=== PATIENT | female | born 1975 | race Caucasian/White ===

== ENCOUNTER 2019-03-23 05:13 | Inpatient (IN) | payer OTHER, MEDICAID ==
[2019-03-23] MEDS ORDERED: Celecoxib 200 MG Cap PO ONE (05:30)
[2019-03-23] MEDS ORDERED: Gabapentin 300 MG Cap PO ONE (05:30)
[2019-03-23] MEDS ORDERED: Acetaminophen 500 MG Tab PO ONE (05:30)
[2019-03-23] MEDS ORDERED: Scopolamine 1.5 MG Transdermal Patch TOP ONE (05:30)
[2019-03-23] MEDS ORDERED: Dextrose 5%-Lactated Ringers 1,000 ML IV SCH ×2 (06:00→11:30)
[2019-03-23] MEDS ORDERED: cefOXitin 2 GM Vial ONE (06:37)
[2019-03-23] MEDS ORDERED: cefOXitin 2 GM in Sodium Chloride 0.9% 50 ML IV ONE (06:45)
[2019-03-23] MEDS ORDERED: Succinylcholine 200 MG/10 ML MDV ONE (07:12)
[2019-03-23] MEDS ORDERED: Neostigmine Methylsulfate 1 MG/ML 5 ML Syringe ONE (07:12)
[2019-03-23] MEDS ORDERED: Lactated Ringers 1,000 ML ONE (07:12)
[2019-03-23] MEDS ORDERED: Glycopyrrolate 0.2 MG/ML 5 ML MDV ONE (07:12)
[2019-03-23] MEDS ORDERED: fentaNYL 250 MCG/5 ML SDV ONE ×2 (07:12→08:14)
[2019-03-23] MEDS ORDERED: Ondansetron 4 MG/2 ML SDV ONE (07:12)
[2019-03-23] MEDS ORDERED: Dexamethasone 4 MG/ML SDV ONE (07:12)
[2019-03-23] MEDS ORDERED: Propofol 200 MG/20 ML SDV ONE (07:12)
[2019-03-23] MEDS ORDERED: Rocuronium 50 MG/5 ML Vial ONE (07:12)
[2019-03-23] MEDS ORDERED: Ketamine 500 MG/5 ML MDV IV SCH (07:30)
[2019-03-23] MEDS ORDERED: Lidocaine 2% 100 MG/5 ML Syringe IVPUSH SCH (07:30)
[2019-03-23] MEDS ORDERED: Ketamine 50 MG in Sodium Chloride 0.9% 49.5 ML IV SCH (07:30)
[2019-03-23] MEDS: Lidocaine 0.4%/D5W 2 GM/500 ML BAG IV SCH (07:30)
[2019-03-23] MEDS ORDERED: fentaNYL 100 MCG/2 ML SDV ONE (08:02)
[2019-03-23] MEDS ORDERED: hydrOXYzine HCl 100 MG/2 ML SDV IM ONE (08:53)
[2019-03-23] MEDS ORDERED: Insulin Lispro 100 Unit/ML 3 ML KwikPen SUBCUT ONE (09:30)
[2019-03-23] MEDS ORDERED: HYDROmorphone 0.5 MG/0.5 ML Syringe IVPUSH PRN (11:24)
[2019-03-23] MEDS ORDERED: 50% Dextrose in Water 50 ML Syringe IVPUSH PRN (11:24)
[2019-03-23] MEDS ORDERED: Metoclopramide 10 MG/2 ML SDV IVPUSH PRN (11:24)
[2019-03-23] MEDS ORDERED: Glucagon,Human Recombinant 1 MG Vial IM PRN (11:24)
[2019-03-23] MEDS ORDERED: Ondansetron 4 MG/2 ML SDV IVPUSH PRN (11:24)
[2019-03-23] MEDS ORDERED: HYDROmorphone 1 MG/ML Syringe IV PRN (11:24)
[2019-03-23] MEDS ORDERED: Labetalol 20 MG/4 ML Syringe IVPUSH PRN (11:24)
[2019-03-23] MEDS ORDERED: diphenhydrAMINE 50 MG/ML SDV IVPUSH PRN (11:24)
[2019-03-23] MEDS ORDERED: hydrOXYzine HCl 100 MG/2 ML SDV IM PRN (11:24)
[2019-03-23] MEDS ORDERED: Albuterol/Ipratropium 3.0-0.5 MG/3 ML Neb Soln INH PRN (11:26)
[2019-03-23] MEDS: cefOXitin 2 GM in Sodium Chloride 0.9% 50 ML IV SCH ×2 (13:59→19:29)
[2019-03-23] MEDS: Gabapentin 250 MG/5 ML Solution ML 470 ML Bottle PO SCH ×2 (14:00→21:11)
[2019-03-23] MEDS: Losartan 50 MG Tab PO SCH (14:03)
[2019-03-23] MEDS: Acetaminophen Soln 650 MG/20.3 ML UD Cup PO SCH ×2 (14:03→19:29)
[2019-03-23] MEDS: Pantoprazole 40 MG Vial IVPUSH SCH (14:03)
[2019-03-23] MEDS ORDERED: VERIFY SCOP PATCH TOP SCH (15:00)
[2019-03-23] MEDS: Heparin Sodium 5,000 Units/ML Vial SUBCUT SCH (16:30)
[2019-03-23] MEDS: metFORMIN 500 MG Tab PO SCH (16:30)
[2019-03-23] MEDS: MVI, Adult with Vitamin K 10 ML, Thiamine 200 MG, Chromium/Copper/Mang/Selen/Zn 1 ML in... IV SCH ×4 (16:32)
[2019-03-23] MEDS: Insulin Lispro 100 Unit/ML 3 ML KwikPen SUBCUT PRN ×2 (16:59→22:26)
[2019-03-23] MEDS ORDERED: Insulin Glargine,Human Rec. Analog 100 Units/ML 3 ML Pen SUBCUT ONE (21:00)
[2019-03-23] MEDS: Montelukast 10 MG Tab PO SCH (21:11)
[2019-03-24] MEDS: Acetaminophen Soln 650 MG/20.3 ML UD Cup PO SCH ×4 (01:44→19:45)
[2019-03-24] MEDS: Lactated Ringers 1,000 ML IV SCH ×2 (01:45→08:01)
[2019-03-24] MEDS: cefOXitin 2 GM in Sodium Chloride 0.9% 50 ML IV SCH ×2 (01:45→08:07)
[2019-03-24] MEDS ORDERED: Iopamidol 612 MG/ML 50 ML SDV PO STA (03:05)
[2019-03-24] MEDS: Heparin Sodium 5,000 Units/ML Vial SUBCUT SCH ×2 (04:09→16:23)
--- NOTE | 2019-03-24 05:07 | CRLCR ---
Indication: Evaluate for Jamar-en-Y leakage Technique: Abdomen modified upper GI Comparison: None Findings: Oral contrast traversing through the gastric pouch in the jejunum down to the left mid abdomen. No evidence of oral contrast leakage. Impression: No evidence for oral contrast leakage. Dictated by Josias Goetz MD @ 03/24/2019 5:05:10 AM Dictated by: Josias Goetz MD @ 03/24/2019 05:05:17 (Electronically Signed)
[2019-03-24] MEDS ORDERED: Ondansetron 4 MG Tab.DIS PO PRN (07:59)
[2019-03-24] MEDS: Lidocaine 0.4%/D5W 2 GM/500 ML BAG IV SCH (08:00)
[2019-03-24] MEDS ORDERED: Lactated Ringers 1,000 ML IV SCH (08:00)
[2019-03-24] MEDS: Gabapentin 250 MG/5 ML Solution ML 470 ML Bottle PO SCH ×3 (08:05→21:19)
[2019-03-24] MEDS: Celecoxib 200 MG Cap PO SCH (08:17)
[2019-03-24] MEDS: metFORMIN 500 MG Tab PO SCH ×2 (08:21→16:23)
[2019-03-24] MEDS: Losartan 50 MG Tab PO SCH (08:26)
[2019-03-24] MEDS: SCOPOLAMINE PATCH CHECK TOP SCH (08:29)
[2019-03-24] MEDS: Insulin Lispro 100 Unit/ML 3 ML KwikPen SUBCUT PRN ×2 (09:57→22:29)
--- NOTE | 2019-03-24 10:57 | PN ---
DATE OF SERVICE: 03/24/2019 SUBJECTIVE: Josselyn is postoperative day 1 following a Jamar-en-Y gastric bypass surgery. She has been up ambulating. Vital signs have been stable. Pain has been controlled. Blood sugar was 248 and 196. She is on metformin 1000 mg b.i.d. and Tresiba units subcu last evening. REVIEW OF SYSTEMS: Remainder of review of systems negative for any pertinent positives and negatives. OBJECTIVE: GENERAL: Josselyn Menendez is a 44-year-old female. She is alert and orientated. VITAL SIGNS: TPR 98.3, 87, 16. Blood pressure 133/84. HEENT: Negative. NECK: Supple. HEART: Regular rate and rhythm. LUNGS: Clear. ABDOMEN: Dressings dry and intact. Abdominal binder is on and ROSALBA drain is intact draining a light red drainage of 65 mL over the past 24 hours. EXTREMITIES: Without peripheral edema. ASSESSMENT: Laparoscopic Jamar-en-Y gastric bypass surgery and liver biopsy for morbid obesity and hepatomegaly. PLAN: 1. Decrease IV to 100 mL/hour. 2. Step 2 gastric bypass diet without cereal. 3. Alogliptin [address] daily in [address] of Januvia 100 mg p.o. daily. 4. Change IV to lactated Ringer's 100 mL/hour. 5. Discontinue D5LR. 6. Check with insurance company to get Januvia prior authorized. 7. Dressing off may shower. 8. Zofran ODT 4 mg every 4 hours p.r.n. nausea. 9. Good pulmonary toilet. 10.Communication order for 3 med cups per hour or 1 every 20 minutes to record at bedside. We will evaluate p.r.n. or in a.m. Milla Anthony PA-C /[id number]
[2019-03-24] MEDS: Pantoprazole 40 MG Vial IVPUSH SCH (13:44)
[2019-03-24] MEDS: MVI, Adult with Vitamin K 10 ML, Thiamine 200 MG, Chromium/Copper/Mang/Selen/Zn 1 ML in... IV SCH ×4 (16:23)
[2019-03-24] MEDS: Montelukast 10 MG Tab PO SCH (21:19)
[2019-03-25] MEDS: Acetaminophen Soln 650 MG/20.3 ML UD Cup PO SCH ×2 (03:11→07:30)
[2019-03-25] MEDS: Heparin Sodium 5,000 Units/ML Vial SUBCUT SCH (03:11)
[2019-03-25] MEDS ORDERED: Pantoprazole 40 MG Tab.CR PO SCH (07:30)
[2019-03-25] MEDS: Celecoxib 200 MG Cap PO SCH (07:30)
[2019-03-25] MEDS: metFORMIN 500 MG Tab PO SCH (07:30)
[2019-03-25] MEDS: Losartan 50 MG Tab PO SCH (08:33)
[2019-03-25] MEDS: Gabapentin 250 MG/5 ML Solution ML 470 ML Bottle PO SCH (08:34)
[2019-03-25] MEDS: SCOPOLAMINE PATCH CHECK TOP SCH (08:34)
[2019-03-25] MEDS ORDERED: Cyanocobalamin (Vitamin B12) 1,000 MCG/ML SDV IM ONE (09:00)
--- NOTE | 2019-03-25 14:09 | OR ---
DATE OF PROCEDURE: 03/23/2019 SURGEON: Abelardo Mata MD PREOPERATIVE DIAGNOSIS: Morbid obesity. POSTOPERATIVE DIAGNOSES: 1. Morbid obesity. 2. Marked hepatomegaly. OPERATIVE PROCEDURES: 1. Laparoscopic Jamar-en-Y gastric bypass with long limb gastroenterostomy (25951). 2. Henry-Cut needle liver biopsy (87906). ANESTHESIA: General. INDICATION FOR PROCEDURE: This is a 44-year-old female presenting with longstanding morbid obesity and increasingly significant comorbidities. After preoperative evaluation and discussion, she wished to proceed with a gastric bypass procedure. Potential risks of procedure including bleeding, infection, leaks from various GI tract closures, problems with bowel obstruction over time, as well as possibility of cardiopulmonary, septic, or hemorrhagic complications leading to were all discussed, and the patient wishes to proceed. DETAILS OF PROCEDURE: The patient was taken to the operating room and placed in a supine position. After general endotracheal anesthesia was induced, she was converted to a lithotomy position and the abdomen prepped and draped. At 15 cm inferior and 5 cm left of the xiphoid process, a transverse incision was made and peritoneal cavity entered under direct vision with an Optiview trocar, inflated to 15 mmHg pressure with CO2. Laparoscope was then reinserted. No underlying trocar insertion site injuries were seen. Following this, 5 additional trocars were placed across the upper and mid abdomen. General exploration was undertaken. The patient was noted to have marked hepatomegaly with the liver being grossly fatty infiltrated. Henry-Cut needle biopsy was obtained from left lobe of the liver. Minimal bleeding from the biopsy sites was controlled with electrocautery. Bilateral transversus abdominis plane blocks were then placed at this time as well. The omentum was then divided in the midline up to the level of the transverse colon. This allowed identification of small bowel at the ligament of Treitz. Small bowel was then traced out 200 cm distal to that point, where it was divided transversely with a CORINE stapler. The small bowel was then traced out additional 200 cm, where the [id number] enteroenterostomy was accomplished with internal firing of the Endo-CORINE 60 mm stapler. Common opening was then closed transversely with the same stapler and angles anastomosed and mesenteric defect approximated with some 0 Ethibond stitch, along with 4 mL of fibrin sealant. The divided end of the Jamar limb was then from the mesentery for a few centimeters, which allowed an antecolic positioning of the Jamar limb up to the level of the gastroesophageal junction without tension. The liver was then retracted anteriorly, and the patient was noted to have no significant hiatal hernia. The gastrointestinal balloon catheter was then inflated 15 mL and pulled snuggly up against the EG junction. The gastric wall over the apex of balloon was then marked with electrocautery and balloon catheter deflated and withdrawn. Lesser omental tissue adjacent to the gastric cardia was then incised, allowing the stomach to be dissected posteriorly in that area. The pouch formation was initiated with a transverse firing of the CORINE stapler at the level of the cauterized fernando on the gastric cardia and then completed with some additional CORINE staple firings up to and through the angle of His. Upon completion of the pouch, both staple lines were noted to be intact. The anvil of a 25-mm EEA stapler was then attached to Springer sump type tube. The latter was brought down through the mouth, taken out through a small opening in the gastric pouch, allowing the anvil likewise to be pulled down to within the gastric pouch. Divided end of the Jamar limb was then opened and main body of the EEA stapler was passed several centimeters into the lumen of small bowel, brought up the anvil and united with it, thus creating the gastrojejunostomy. Upon removal of the stapler, double donuts of mucosa were noted within it. Small bowel was closed off with a CORINE stapler. A leak test was accomplished with injection of 120 mL of air in the gastric pouch while it was submerged with antibiotic-containing saline solution. No leaks were identified. A single Olegario- Krishnamurthy drain was taken out through the left lateral trocar site and placed adjacent to the gastrojejunostomy and from there up into the splenic fossa. At that point, the trocars were removed and the peritoneal cavity deflated. The incisions were closed with some 4-0 Vicryl skin stitch, which was also used to affix the drain. The patient was taken to the recovery room in satisfactory condition. Abelardo Mata MD /[id number]
--- NOTE | 2019-03-26 07:55 | DISCH ---
ADMISSION DIAGNOSES: Morbid obesity, type 2 diabetes mellitus, fibromyalgia, anxiety disorder, chronic migraine headaches, and depression. DISCHARGE DIAGNOSES: Laparoscopic Jamar-en-Y gastric bypass surgery, liver biopsy for morbid obesity and hepatomegaly. Date of surgery, 03/23/2019. Surgeon, Abelardo Mata MD. HISTORY: Josselyn Menendez is a pleasant 44-year-old female with longstanding history of morbid obesity and increasing comorbidities. After preoperative evaluation and discussion of possible risks and possible complications, she wished to proceed with surgical procedure. HOSPITAL COURSE: Josselyn had her surgery on 03/23/2019. She had no operative complications. On postoperative day #1, she was started on a step-2 gastric bypass diet, and her diabetic medication was adjusted according to her blood sugar. She was started on metformin 1000 mg b.i.d. and alogliptin 25 mg for Januvia 100 mg p.o. daily. Her blood sugars at the time of discharge had decreased to 158. She received adequate dietary instructions, B12 1000 mcg IM injection. Her oral intake was adequate. Activity was good and pain was well managed. She was able to be discharged on postoperative day #2 without any complications. PHYSICAL EXAMINATION: GENERAL: Josselyn Menendez is a 44-year-old female. VITAL SIGNS: Height is 5 feet 7 inches. Weight is 241 pounds. BMI is 37.8. TPR; 97.4, 80, 16, and blood pressure 126/77. HEENT: Negative. NECK: Supple. HEART: Regular rate and rhythm. LUNGS: Clear. ABDOMEN: Sutures are intact. Incisions look good. 4x4 over ROSALBA drain site. Abdominal binder is on. EXTREMITIES: Without peripheral edema. DISPOSITION: Discharged to home. CONDITION: Stable and improving. FOLLOWUP: Followup appointment with Milla Anthony PA-C, at [place], [place], on 04/06/2019 at 09:30 a.m. DISCHARGE MEDICATIONS: 1. Tylenol 650 mg every 6 hours for pain. 2. Celebrex 200 mg daily, #14. 3. Zofran ODT 4 mg every 4 hours p.r.n. nausea, #30. 4. Januvia 100 mg oral daily, #30, with 11 refills. Home Medications: She is to resume home medications of amitriptyline 50 mg at bedtime, Temovate 0.5% ointment one topical as needed, clonazepam 2 mg oral at bedtime, Duloxetine, Cymbalta 60 mg oral daily, Neurontin 300 mg oral at bedtime, Cozaar 50 mg oral daily, Singulair 10 mg oral daily, nystatin cream one dose topical twice daily, Inderal 120 mg oral daily, simvastatin 20 mg oral daily, Wellbutrin 150 mg oral daily, and metformin 1000 mg daily. She is to discontinue taking Tresiba and Robaxin. DIET: Step-2 gastric bypass diet without cereal for 2 weeks. Drink 8 to 10 glasses of water a day. ACTIVITY: No lifting greater than 10 pounds for 2 weeks. Walk 6 times daily inside your home. Driving, do not drive for 1 week. Shower/bathing, may shower. DISCHARGE INSTRUCTIONS: Notify provider if any fever, increased pain, nausea, or vomiting. Keep site clean and dry. Wear abdominal binder for 2 weeks and then as tolerated. Special instruction: Use incentive spirometer 10 times every hour while awake for 1 week. Check blood sugars 4 times a day and bring results to clinic.
== END 2019-03-25 10:25 | disposition home or self-care (01) | DRG 621 ==
LOC: JP.SDSSCHI 05:13 → JP.SDS 05:13 → JP.2SS 09:00 → EDSTATUS 12:45
PROVIDERS: ADMIT Surgery; ATTEND Surgery
PROC: 0D164ZA Bypass Stomach to Jejunum, Percutaneous Endoscopic Approach (ICD-10-PCS; principal; 2019-03-23)
PROC: 0FB24ZX Excision of Left Lobe Liver, Percutaneous Endoscopic Approach, Diagnostic (ICD-10-PCS; 2019-03-23)
PROC: 3E02340 Introduction of Influenza Vaccine into Muscle, Percutaneous Approach (ICD-10-PCS; 2019-03-23)
DX: E66.01 Morbid (severe) obesity due to excess calories (principal); M79.7 Fibromyalgia; G43.709 Chronic migraine without aura, not intractable, without status migrainosus; I10 Essential (primary) hypertension; E78.5 Hyperlipidemia, unspecified; J45.20 Mild intermittent asthma, uncomplicated; F41.1 Generalized anxiety disorder; E78.00 Pure hypercholesterolemia, unspecified; E11.42 Type 2 diabetes mellitus with diabetic polyneuropathy; E11.59 Type 2 diabetes mellitus with other circulatory complications; K76.0 Fatty (change of) liver, not elsewhere classified; F32.9 Major depressive disorder, single episode, unspecified; Z79.4 Long term (current) use of insulin; Z68.37 Body mass index [BMI] 37.0-37.9, adult; Z79.899 Other long term (current) drug therapy; Z23 Encounter for immunization
CPT/HCPCS: 36415; 74240; 81025; 82962; 86850; 86900; 86901; 88307; 88313; 94762; A9270-GY; C9113; J0171; J0330; J0694; J1100; J1644; J1815; J1815-GY; J2001; J2405; J2704; J2710; J2795; J3010; J3411; J3420; J3490; J7030; J7042; J7050; J7120; Q9967